=== PATIENT | female | born 1985 | race Caucasian/White ===

== ENCOUNTER 2016-05-23 11:44 | Inpatient (IN) | payer OTHER ==
[2016-05-23] MEDS ORDERED: Witch Hazel PAD* JAR TOPICAL PRN (13:33)
[2016-05-23] MEDS ORDERED: Dibucaine 1% 28.35 GM TUBE PR PRN (13:33)
[2016-05-23] MEDS ORDERED: Glycerin ADULT SUPP PR PRN (13:33)
[2016-05-23] MEDS ORDERED: Acetaminophen TAB* 325 MG PO PRN (13:33)
[2016-05-23] MEDS ORDERED: RHO D Immune Globulin (HUMAN)* 300 MCG = 1,500 I.U. INJ IM ONE (13:33)
[2016-05-23] MEDS ORDERED: oxyCODONE/Acetamin 5/325 MG* TAB PO PRN (13:33)
[2016-05-23] MEDS ORDERED: OXYTOCIN* 10 UNITS/ML 1 ML VIAL IM ONE (13:33)
[2016-05-23] MEDS ORDERED: Misoprostol TAB* 200 MCG PR ONE (13:33)
[2016-05-23] MEDS ORDERED: Ibuprofen TAB* 600 MG PO PRN (13:33)
[2016-05-23] MEDS ORDERED: OXYTOCIN* 10 UNITS/ML 1 ML VIAL ONE (14:39)
[2016-05-23] MEDS ORDERED: Misoprostol TAB* 200 MCG ONE (14:40)
[2016-05-23] MEDS ORDERED: Oxytocin in LR* 20 UNITS/1,000 ML BAG IVPB ONE (14:52)
[2016-05-23] MEDS ORDERED: Lidocaine 1% MPF* 2 ML VIAL ONE (14:55)
[2016-05-23] MEDS ORDERED: ceFOXitin 2 GM IVPREMIX* 2 GM/50 ML BAG IVPB ONE (15:04)
[2016-05-23 15:30] LABS: Hematocrit 38 % (35-47); Hemoglobin 12.7 g/dl (12.0-16.0); Mean Corpuscular HGB Conc 34 g/dl (31-36); Mean Corpuscular Hemoglobin 31 pg (27-31); Mean Corpuscular Volume 92 fL (80-97); Mean Platelet Volume 9 um3 (7.4-10.4); Red Blood Count 4.13 10^6/ul (4.0-5.4); Red Cell Distribution Width 14 % (10.5-15); White Blood Count 14.6 10^3/ul (3.5-10.8)
[2016-05-23] MEDS ORDERED: Oxytocin in LR* 20 UNITS/1,000 ML BAG IVPB SCH (16:00)
[2016-05-23] MEDS: Docusate CAP* 100 MG PO SCH (22:47)
[2016-05-24 07:29] LABS: Hematocrit 34 % (35-47); Hemoglobin 11.7 g/dl (12.0-16.0); Mean Corpuscular HGB Conc 34 g/dl (31-36); Mean Corpuscular Hemoglobin 31 pg (27-31); Mean Corpuscular Volume 92 fL (80-97); Mean Platelet Volume 9 um3 (7.4-10.4); Red Blood Count 3.76 10^6/ul (4.0-5.4); Red Cell Distribution Width 14 % (10.5-15); White Blood Count 11.7 10^3/ul (3.5-10.8)
[2016-05-24] MEDS: Docusate CAP* 100 MG PO SCH ×3 (08:41→19:14)
[2016-05-24] MEDS ORDERED: Ferrous Gluconate TAB* 324 MG TAB PO SCH (09:00)
[2016-05-24] MEDS ORDERED: Influenza VAC *QUAD* 2016-17* 0.5 ML SYRINGE IM ONE (16:56)
[2016-05-25] MEDS: Docusate CAP* 100 MG PO SCH (00:18)
[2016-05-25 08:11] VITALS: BP 125/70
== END 2016-05-25 15:19 | disposition home or self-care (01) | DRG 767 ==
LOC: MCHOBOUT 11:44 → MCHOB 11:54
PROVIDERS: ADMIT Midwife; ATTEND Midwife
PROC: 4A1HX4Z Monitoring of Products of Conception, Cardiac Electrical Activity, External Approach (ICD-10-PCS; principal; 2016-05-23)
PROC: 10D17ZZ Extraction of Products of Conception, Retained, Via Natural or Artificial Opening (ICD-10-PCS; 2016-05-23)
PROC: 10E0XZZ Delivery of Products of Conception, External Approach (ICD-10-PCS; 2016-05-23)
PROC: 10907ZC Drainage of Amniotic Fluid, Therapeutic from Products of Conception, Via Natural or Artificial Opening (ICD-10-PCS; 2016-05-23)
PROC: 0HQ9XZZ Repair Perineum Skin, External Approach (ICD-10-PCS; 2016-05-23)
DX: O99.824 Streptococcus B carrier state complicating childbirth (principal); O77.0 Labor and delivery complicated by meconium in amniotic fluid; O62.2 Other uterine inertia; Z3A.39 39 weeks gestation of pregnancy; Z37.0 Single live birth; Z88.1 Allergy status to other antibiotic agents; O70.0 First degree perineal laceration during delivery; O72.0 Third-stage hemorrhage
CPT/HCPCS: 36415; 85027; 85461; 86850; 86870; 86880; 86900; 86901; 90686; A9270-GY; J0694; J2590; J2790